=== PATIENT | female | born 1930 | race Caucasian/White ===

== ENCOUNTER 2016-12-11 07:24 | Emergency (ER) | payer MEDICARE ==
[2016-12-11 08:40] LABS: Hematocrit 37 % (35-47); Hemoglobin 12.4 g/dl (12.0-16.0); Mean Corpuscular HGB Conc 34 g/dl (31-36); Mean Corpuscular Hemoglobin 30 pg (27-31); Mean Corpuscular Volume 89 fL (80-97); Mean Platelet Volume 7 um3 (7.4-10.4); Red Blood Count 4.13 10^6/ul (4.0-5.4); Red Cell Distribution Width 13 % (10.5-15); White Blood Count 6.8 10^3/ul (3.5-10.8)
--- NOTE | 2016-12-11 08:56 | RAD ---
HISTORY: Chest pain COMPARISONS: None VIEWS: 2: Frontal and lateral views of the chest. FINDINGS: CARDIOMEDIASTINAL SILHOUETTE: The cardiomediastinal silhouette is normal. NATALIIA: The nataliia are normal. PLEURA: The costophrenic angles are sharp. No pleural abnormalities are noted. LUNG PARENCHYMA: There is hyperinflation with flattening of the diaphragm and expansion of the AP diameter of the chest. ABDOMEN: The upper abdomen is clear. There is no subphrenic gas. BONES AND SOFT TISSUES: Degenerative changes are noted along the spine. OTHER: None. IMPRESSION: HYPERINFLATION. NO ACTIVE CARDIOPULMONARY DISEASE.
[2016-12-11 09:02] LABS: Albumin 4.1 g/dL (3.2-5.2); BUN/Creatinine Ratio 25.3 (8-20); Calcium 9.7 mg/dL (8.6-10.3); EGFR Non-African American 65.3 (>60); Globulin 3.5 g/dL (2-4); Potassium 4.3 mmol/L (3.5-5.0); Total Bilirubin 0.5 mg/dL (0.2-1.0); Total Protein 7.6 g/dL (6.4-8.9); Troponin I 0.01 ng/mL (<0.04)
--- NOTE | 2016-12-11 09:05 | RAD ---
Indication: LEFT shoulder pain. Comparison: No relevant prior exams available on the [facility] PACS for comparison. Technique: Oblique AP view LEFT shoulder REPORT AND IMPRESSION: Limited exam due to single view. Unremarkable alignment in the AP projection. No fracture evident in the AP projection. Mild osteophytosis at the acromioclavicular and glenohumeral joints. Unremarkable soft tissue contours.
[2016-12-11 09:28] LABS: TSH (Thyroid Stimulating Horm) 3.18 mcIU/mL (0.34-5.60)
[2016-12-11] MEDS: HYDROcodone/ACETAMIN 5-325 MG* 1 TAB PO ONE ×2 (11:13→11:21)
[2016-12-11] MEDS ORDERED: Acetaminophen TAB* 325 MG PO ONE (11:49)
[2016-12-11 12:57] VITALS: BP 107/52
--- NOTE | 2016-12-11 18:50 | ED ---
Haroldo Amador Thomas, scribed for Alcon Greer MD on 12/11/16 at 0745 . Upper Extremity Pain - HPI Summary HPI Summary: The pt is a 86 y/o F presenting to the ED c/o left arm pain that began this AM. The pain woke her up from her sleep. The pain is located throughout her entire arm and is described as aching. The pain is constant and radiates down her back. The pain is rated 7/10. She was recently moving heavy furniture. The pain is aggravated by movement and is alleviated by nothing. 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 Pt additionally c/o nausea, chills, and diaphoresis. Pt denies CP, SOB, cough, and fever. She is accompanied by two family members. - History of Current Complaint Chief Complaint: EDExtremityUpper Stated Complaint: LT ARM PAIN/NAUSEA Hx Obtained From: Patient Onset/Duration: Started Hours Ago - onset of symptoms this AM, Still Present Timing: Constant Pain Location: Arm - entire left arm Character: Aching Aggravating Factor(s): Movement Alleviating Factor(s): Nothing Associated Signs & Symptoms: Positive: Nausea, Other - Chills, diaphoresis; NEGATIVE: cough. Negative: Fever, Chest Pain, SOB - Allergies/Home Medications Allergies/Adverse Reactions: Allergies Allergy/AdvReac Type Severity Reaction Status Date / Time No Known Allergies Allergy Verified 12/11/16 07:29 PMH/Surg Hx/FS Hx/Imm Hx Previously Healthy: Yes Endocrine/Hematology History: Denies: Hx Diabetes Cardiovascular History: Denies: Hx Hypertension - Surgical History Surgery Procedure, Year, and Place: Hysterectomy, Femur repair Infectious Disease History: No Infectious Disease History: Denies: Traveled Outside the [place] in Last 30 Days - Family History Known Family History: Positive: Cardiac Disease, Other - Esophageal CA - Social History Alcohol Use: None Hx Substance Use: No Substance Use Type: Reports: None Hx Tobacco Use: No Smoking Status (MU): Never Smoked Tobacco Review of Systems Positive: Chills, Skin Diaphoresis. Negative: Fever Negative: Chest Pain Negative: Shortness Of Breath, Cough Positive: Nausea Positive: Other - L arm pain All Other Systems Reviewed And Are Negative: Yes Physical Exam - Summary Physical Exam Summary: VITAL SIGNS: Reviewed. GENERAL: Patient is a well-developed and nourished female who is lying comfortable in the stretcher. Patient is not in any acute respiratory distress. HEAD AND FACE: No signs of trauma. No ecchymosis, hematomas or skull depressions. No sinus tenderness. EYES: PERRLA, EOMI x 2, No injected conjunctiva, no nystagmus. EARS: Hearing grossly intact. Ear canals and tympanic membranes are within normal limits. MOUTH: Oropharynx within normal limits. NECK: Supple, trachea is midline, no adenopathy, no JVD, no carotid bruit, no c- spine tenderness, neck with full ROM. CHEST: Symmetric, no tenderness at palpation LUNGS: Clear to auscultation bilaterally. No wheezing or crackles. CVS: Regular rate and rhythm, S1 and S2 present, no murmurs or gallops appreciated. ABDOMEN: Soft, non-tender. No signs of distention. No rebound no guarding, and no masses palpated. Bowel sounds are normal. EXTREMITIES: She has some tenderness in her left shoulder with palpation. FROM in all major joints, no edema, no cyanosis, no deformity, no clubbing. NEURO: Alert and oriented x 3. No acute neurological deficits. Speech is normal and follows commands. SKIN: Dry and warm Triage Information Reviewed: Yes Vital Signs On Initial Exam: Initial Vitals Temp Pulse Resp BP Pulse Ox 98.5 F 75 16 160/79 96 12/11/16 07:28 12/11/16 07:28 12/11/16 07:28 12/11/16 07:28 12/11/16 07:28 Vital Signs Reviewed: Yes Diagnostics - Vital Signs Vital Signs Temp Pulse Resp BP Pulse Ox 12/11/16 07:28 98.5 F 75 16 160/79 96 - Laboratory Result Diagrams: 12/11/16 08:25 12/11/16 08:25 Lab Statement: Any lab studies that have been ordered have been reviewed, and results considered in the medical decision making process. - Radiology Shoulder XR Xray Interpretation: No Acute Changes - Limited exam due to single view. Unremarkable alignment in the AP projection. No fracture evident in the AP projection. Mild osteophytosis at the acromioclavicular and glenohumeral joints. Unremarkable soft tissue contours. ED physician has reviewed this report and agrees. Radiology Interpretation Completed By: Radiologist CXR Xray Interpretation: No Acute Changes - No active cardiopulmonary disease. ED physician has reviewed this report and agrees. Radiology Interpretation Completed By: Radiologist - EKG 07:46 Cardiac Rate: NL - 68 BPM EKG Interpretation: Nml Webster. Course/Dx - Course Assessment/Plan: The pt is a 86 y/o F presenting to the ED c/o left arm pain that began this AM. The pain woke her up from her sleep. The pain is located throughout her entire arm and is described as aching. The pain is constant and radiates down her back. The pain is rated 7/10. She was recently moving heavy furniture. The pain is aggravated by movement and is alleviated by nothing. 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 Pt additionally c/o nausea, chills, and diaphoresis. Pt denies CP, SOB, cough, and fever. She is accompanied by two family members. Test results are without significant abnormalities. Troponin #1 is 0.01 and troponin #2 is 0.02. CXR shows no active cardiopulmonary disease and Shoulder XR shows limited exam due to single view. Unremarkable alignment in the AP projection. No fracture evident in the AP projection. Mild osteophytosis at the acromioclavicular and glenohumeral joints. Unremarkable soft tissue contours. In the ED course, the patient was given Toradol for the pain and the symptoms were resolved. At this point, the patient is asymptomatic. Since the patient is feeling better and there are no other complaints, the patient will be discharged home with follow up by primary care. - Diagnoses Provider Diagnoses: Arm pain, Shoulder pain Discharge - Discharge Plan Condition: Stable Disposition: HOME Patient Education Materials: Arm Pain (ED), Shoulder Pain (ED) Referrals: [facility] [place] PHYSICIAN REFERRAL [Outside] - 3 Days Additional Instructions: Follow up with your primary care provider in 2-3 days. If you do not have one, you can use the [facility] [place] Physician Referral Service to find one and make an appointment. Return to the emergency department for any new or worsening symptoms. The documentation as recorded by the Haroldo hallman Thomas accurately reflects the service I personally performed and the decisions made by me, Alcon Greer MD.
== END 2016-12-11 12:56 | disposition home or self-care (01) ==
LOC: ED 07:24
DX: M79.602 Pain in left arm (principal); M25.519 Pain in unspecified shoulder; R11.0 Nausea
CPT/HCPCS: 36415; 71020; 80053; 82550; 82553; 83605; 83735; 83874; 83880; 84443; 84484; 85025; 93005; 99285; A9270-GY